=== PATIENT | female | born 1950 | race Hispanic/Latino ===

== ENCOUNTER 2018-06-10 22:03 | Emergency (ER) | payer MEDICARE ==
[2018-06-10 22:04] VITALS: BMI 18.8
[2018-06-10 22:34] VITALS: TEMP 97.9
--- NOTE | 2018-06-10 23:20 | ED PDOC ---
Arrival/HPI - General Chief Complaint: Chest Pain Time Seen by Provider: 06/10/18 22:42 Historian: Patient - History of Present Illness Narrative History of Present Illness (Text): 06/10/18 22:5:7 A 67 year old female, whose past medical history includes arthritis, presents to the emergency department complaining of chest pain for 2 weeks. Patient reports she 2 weeks ago when symptom began, she felt pain to be a mild "pressure -like sensation, with waves of pain". States she noticed it when she was walking up the stairs, however did not feel concerned about it, as she assumed it was due to her age. However, today, pain became more intense and radiated to her head, causing pressure. Patient notes last night, she woke up to a sensation as though she heard a loud noise in her ears, as patient described as "an explosion in her ears." She mentions never having these symptoms in the past. Patient discussed with her brother what she was experiencing and was recommended to go visit the ER for evaluation. Patient denies any other complaints at this time. PMD: Located in [place]. Time/Duration: > week (2 weeks) Symptom Onset: Gradual Symptom Course: Unchanged Past Medical History - Provider Review Nursing Documentation Reviewed: Yes - Musculoskeletal/Rheumatological Hx Osteoarthritis: Yes - Psychiatric Hx Substance Use: No - Surgical History Other/Comment: 2nd toe on right foot Family/Social History - Physician Review Nursing Documentation Reviewed: Yes Family/Social History: No Known Family HX Smoking Status: Never Smoked Hx Alcohol Use: Yes Hx Substance Use: No Allergies/Home Meds Allergies/Adverse Reactions: Allergies No Known Allergies Allergy (Verified 12/30/16 12:13) Home Medications: Home Meds Medication Instructions Recorded Confirmed No Known Home Med 12/30/16 12/30/16 Review of Systems - Physician Review All systems were reviewed & negative as marked: Yes - Review of Systems Constitutional: absent: Fevers, Night Sweats Respiratory: absent: SOB, Cough Cardiovascular: Chest Pain Gastrointestinal: absent: Abdominal Pain, Diarrhea, Nausea, Vomiting Neurological: Headache (patient states today chest pain radiating to head, causing pressure-like headache.). absent: Dizziness Physical Exam Vital Signs Reviewed: Yes Vital Signs Temp Pulse Resp BP Pulse Ox 06/11/18 05:35 56 L 18 144/73 98 06/10/18 22:29 97.9 F 76 16 121/73 99 Temperature: Afebrile Blood Pressure: Normal Pulse: Regular Respiratory Rate: Normal Appearance: Positive for: Well-Appearing, Non-Toxic, Comfortable Pain Distress: None Mental Status: Positive for: Alert and Oriented X 3 - Systems Exam Head: Present: Atraumatic, Normocephalic Pupils: Present: PERRL Extroacular Muscles: Present: EOMI Conjunctiva: Present: Normal Mouth: Present: Moist Mucous Membranes Neck: Present: Normal Range of Motion Respiratory/Chest: Present: Clear to Auscultation, Good Air Exchange. No: Respiratory Distress, Accessory Muscle Use Cardiovascular: Present: Regular Rate and Rhythm, Normal S1, S2. No: Murmurs Abdomen: No: Tenderness, Distention, Peritoneal Signs Back: Present: Normal Inspection Upper Extremity: Present: Normal Inspection. No: Cyanosis, Edema Lower Extremity: Present: Normal Inspection. No: Edema Neurological: Present: GCS=15, CN II-XII Intact, Speech Normal Skin: Present: Warm, Dry, Normal Color. No: Rashes Psychiatric: Present: Alert, Oriented x 3, Normal Insight, Normal Concentration Medical Decision Making ED Course and Treatment: 06/10/18 23:01 Impression: 67 year old female with chest pain and pressure-like headache. No acute findings on physical examination. Plan: -- EKG -- Angio Disection Protocol CT -- Chest X-ray -- Labs -- Urinalysis -- Reassess and disposition Progress Notes: EKG: Ordered, reviewed, and independently interpreted the EKG. Rate : 74 BPM Rhythm : NSR Interpretation : No ST-segment elevations or depressions, no T-wave inversions, normal intervals. Comparison : No previous EKG for comparison. 06/11/2018 02:[address]/ Abd/Pelvis CT IMPRESSION: 1. 6mm hypodense lesion in the pancreatic body head. Seen on image 149 series 6. 3 month followup exam is advised. 2. pericardial effusion, and maximal thickness measuring 9 mm. Dictator: aKren Tavares MD 06/11/2018 02:[address] IMPRESSION: 1. Peripheral effusion noted measuring 9 mm in thickness. 2. 1 cm indeterminate left kidney lesion. 3. There is wall thickening noted involving the small bowel. This may represent enteritis. Dictator: Karen Tavares MD 06/11/2018 05:[address] IMPRESSION: 1. No evidence of acute intracranial hemorrhage, extraxial fluid or midline shift. 2. No evidence of acute large vessel infarction. Dictator: Donavon Rodriguez MD - Lab Interpretations Lab Results: 06/10/18 23:50 06/10/18 23:50 Lab Results 06/11/18 00:10: Urine Color Yellow, Urine Appearance Clear, Urine pH 6.5, Ur Specific [place] 1.015, Urine Protein Negative, Urine Glucose (UA) Negative, Urine Ketones Negative, Urine Blood Negative, Urine Nitrate Negative, Urine Bilirubin Negative, Urine Urobilinogen 0.2, Ur Leukocyte Esterase Negative 06/10/18 23:50: Sodium 142, Potassium 4.3, Chloride 103, Carbon Dioxide 28, Anion Gap 14, BUN 15, Creatinine 0.9, Est GFR ( Amer) > 60, Est GFR (Non- Af Amer) > 60, Random Glucose 90, Calcium 9.7, Magnesium 2.2, Total Bilirubin 0.3, AST 29, ALT 23, Alkaline Phosphatase 48, Lactate Dehydrogenase 560, Total Creatine Kinase 91, Troponin I < 0.01, Total Protein 7.0, Albumin 4.4, Globulin 2.7, Albumin/Globulin Ratio 1.7 06/10/18 23:50: WBC 4.5, RBC 4.48, Hgb 13.6, Hct 39.3, MCV 87.7, MCH 30.4, MCHC 34.6, RDW 12.4, Plt Count 155, MPV 9.6, Gran % 57.1, Lymph % (Auto) 33.3, Shannon % (Auto) 5.9, Eos % (Auto) 3.3, Baso % (Auto) 0.4, Gran # 2.59, Lymph # (Auto) 1.5, Shannon # (Auto) 0.3, Eos # (Auto) 0.2, Baso # (Auto) 0.02 - RAD Interpretation Radiology Orders: 06/10/18 23:01 ANGIOGRAPHY DISECTION PROTOCOL [CT] Stat CHEST PORTABLE [RAD] Stat 06/11/18 03:10 HEAD W/O CONTRAST [CT] Stat - Scribe Statement The provider has reviewed the documentation as recorded by the Sanju Huffman Provider Scribe Attestation: All medical record entries made by the Scribfabián were at my direction and personally dictated by me. I have reviewed the chart and agree that the record accurately reflects my personal performance of the history, physical exam, medical decision making, and the department course for this patient. I have also personally directed, reviewed, and agree with the discharge instructions and disposition. Disposition/Present on Arrival - Present on Arrival Any Indicators Present on Arrival: No History of DVT/PE: No History of Uncontrolled Diabetes: No Urinary Catheter: No History of Decub. Ulcer: No History Surgical Site Infection Following: None - Disposition Have Diagnosis and Disposition been Completed?: Yes Diagnosis: Chest pain Disposition: HOME/ ROUTINE Disposition Time: 02:50 Condition: GOOD Discharge Instructions (ExitCare): Chest Pain (ED) Additional Instructions: ALEXIS TAVERAS, thank you for letting us take care of you today. Your provider was Lito Hernandes DO and you were treated for CHEST PAIN. The emergency medical care you received today was directed at your acute symptoms. If you were prescribed any medication, please fill it and take as directed. It may take several days for your symptoms to resolve. Return to the Emergency Department if your symptoms worsen, do not improve, or if you have any other problems. Please contact your doctor or call one of the physicians/clinics you have been referred to that are listed on the Patient Visit Information form that is included in your discharge packet. Bring any paperwork you were given at discharge with you along with any medications you are taking to your follow up visit. Our treatment cannot replace ongoing medical care by a primary care provider outside of the emergency department. Thank you for allowing the [facility] team to be part of your care today. Follow up with your fur tanner in 2-3 days for re-evaluation and further management. Referrals: [facility] Reannabel, [Family Provider] - Follow up with primary Forms: DIIME (Tai[place]ese)
[2018-06-11 00:23] LABS: BASO # 0.02 K/mm3 (0.0-2.0); BASO % 0.4 % (0.0-3.0); EOS # 0.2 (0.0-0.7); EOS % 3.3 % (1.5-5.0); GRAN # 2.59 (1.4-6.5); GRAN % 57.1 % (50.0-68.0); HEMOGLOBIN 13.6 g/dL (12.0-16.0); LYMPH # 1.5 (1.2-3.4); LYMPH % 33.3 % (22.0-35.0); MEAN CELL VOLUME 87.7 fl (80.0-105.0); MEAN CORPUSCULAR HEMOGLOBIN 30.4 pg (25.0-35.0); MEAN CORPUSCULAR HGB CONC 34.6 g/dl (31.0-37.0); MEAN PLATELET VOLUME 9.6 fl (7.0-11.0); MONO # 0.3 (0.1-0.6); MONO % 5.9 % (1.0-6.0); RBC 4.48 10^6/uL (3.5-6.1); RED CELL DISTRIBUTION WIDTH 12.4 % (11.5-14.5); WHITE BLOOD COUNT 4.5 10^3/ul (4.5-11.0)
[2018-06-11 00:27] LABS: PH,URINE 6.5 (4.7-8.0); URINE BILIRUBIN NEGATIVE (NEGATIVE); URINE BLOOD NEGATIVE (NEGATIVE); URINE GLUCOSE (UA) NEGATIVE (NEGATIVE); URINE LEUKOCYTE ESTERASE NEGATIVE Leu/uL (NEGATIVE); URINE PROTEIN NEGATIVE mg/dL (<30 mg/dL); URINE UROBILINOGEN 0.2 E.U./dL (<1 E.U./dL)
[2018-06-11 00:28] LABS: URINE APPEARANCE CLEAR (CLEAR); URINE COLOR YELLOW (YELLOW)
[2018-06-11 00:29] LABS: ALB/GLOB RATIO 1.7 (1.1-1.8); ALBUMIN 4.4 g/dL (3.0-4.8); ALT/SGPT 23 U/L (7-56); AST/SGOT 29 U/L (14-36); BLOOD UREA NITROGEN 15 mg/dL (7-21); CALCIUM 9.7 mg/dL (8.4-10.5); GFR AFRICAN-AMERICAN > 60; GFR NON-AFRICAN AMERICAN > 60
[2018-06-11 00:39] LABS: TROPONIN I < 0.01 ng/mL
[2018-06-11 06:28] VITALS: BP 144/73; PULSE 56; RESP 18; O2SAT 98
--- NOTE | 2018-06-11 08:07 | CT ---
Date of service: 06/11/2018 PROCEDURE: CT HEAD WITHOUT CONTRAST. HISTORY: r/o ICH COMPARISON: 12/30/2016 TECHNIQUE: Axial computed tomography images were obtained through the head/brain without intravenous contrast. There is some contrast enhancement related to the enhanced study of the chest performed several hours earlier. Radiation dose: Total exam DLP = 692 mGy-cm. This CT exam was performed using one or more of the following dose reduction techniques: Automated exposure control, adjustment of the mA and/or kV according to patient size, and/or use of iterative reconstruction technique. FINDINGS: HEMORRHAGE: No intracranial hemorrhage. BRAIN: No mass effect or edema. No atrophy or chronic microvascular ischemic changes. VENTRICLES: Unremarkable. No hydrocephalus. CALVARIUM: Unremarkable. PARANASAL SINUSES: Unremarkable as visualized. No significant inflammatory changes. MASTOID AIR CELLS: Unremarkable as visualized. No inflammatory changes. OTHER FINDINGS: The report concurs with the preliminary [facility] report IMPRESSION: No acute intracranial findings
--- NOTE | 2018-06-11 09:19 | CT ---
PROCEDURE: CT Angiography Chest, Abdomen and Pelvis with and without intravenous contrast HISTORY: chest pain - r/o dissection COMPARISON: None. TECHNIQUE: Contiguous axial images of the chest, abdomen and pelvis were obtained in the phase of aortic enhancement. A noncontrast enhanced CT of the chest was also obtained to evaluate for possible intramural thrombus. Coronal and sagittal reformats were generated. IV dose administered: 146 cc of Omni 350 Radiation dose: Total exam DLP = 471 mGy-cm. This CT exam was performed using one or more of the following dose reduction techniques: Automated exposure control, adjustment of the mA and/or kV according to patient size, and/or use of iterative reconstruction technique. FINDINGS: CT ANGIOGRAPHY OF THE CHEST WITH & WITHOUT CONTRAST: AORTA (CHEST AND ABDOMEN): The thoracic and abdominal aorta are unremarkable, without aneurysm, dissection or rupture. No intramural thrombus identified in the thoracic aorta on the non-contrast ct of the chest. The celiac axis, superior mesenteric artery, inferior mesenteric artery and the renal arteries are widely patent. The pelvic arteries are unremarkable. LUNGS: Clear. No nodule, mass or consolidation. MEDIASTINUM: Unremarkable. Normal caliber aorta and pulmonary arterial trunk. No aortic dissection. Normal size heart. LYMPH NODES: Unremarkable. PLEURA: Unremarkable. No pneumothorax. No pleural fluid. Small pericardial effusion BONES: Unremarkable. OTHER FINDINGS: None. CT ANGIOGRAPHY OF THE ABDOMEN AND PELVIS WITH CONTRAST: LIVER: Unremarkable. No gross lesion or ductal dilatation. GALLBLADDER AND BILE DUCTS: Unremarkable. PANCREAS: 6 mm cyst in the uncinate process of the pancreas. SPLEEN: Unremarkable. ADRENALS: Unremarkable. No mass. KIDNEYS AND URETERS: Unremarkable. No hydronephrosis. No solid mass. VASCULATURE: Unremarkable. No aortic aneurysm. STOMACH AND BOWEL: Unremarkable. No obstruction. No gross mural thickening. APPENDIX: Normal appendix. PERITONEUM: Unremarkable. No free fluid. No free air. LYMPH NODES: Unremarkable. No enlarged lymph nodes. BLADDER: Unremarkable. REPRODUCTIVE: Unremarkable. BONES: No acute fracture. OTHER FINDINGS: The report concurs with the preliminary [facility] report IMPRESSION: No evidence of aortic dissection or aneurysm
--- NOTE | 2018-06-11 11:12 | RAD ---
Date of service: 06/10/2018 HISTORY: r/o infiltrate COMPARISON: 12/30/2016 FINDINGS: LUNGS: No active pulmonary disease. PLEURA: No significant pleural effusion identified, no pneumothorax apparent. CARDIOVASCULAR: Normal. OSSEOUS STRUCTURES: No significant abnormalities. VISUALIZED UPPER ABDOMEN: Normal. OTHER FINDINGS: None. IMPRESSION: No active disease.
--- NOTE | 2018-06-11 16:27 | CARD ---
APPROVED REPORT Date of service: 06/10/2018 EKG Measurement Heart [id number] <Conclusion> Poor data quality, interpretation may be adversely affected Sinus rhythm with premature supraventricular complexes ST abnormality, nonspecific Abnormal ECG
== END 2018-06-11 06:28 | disposition home or self-care (01) ==
LOC: ED 22:03
DX: R07.9 Chest pain, unspecified (principal)
CPT/HCPCS: 70450; 71045; 71275; 74175; 80053; 81003; 82550; 83615; 83735; 84484; 85025; 93005; 99283; Q9967

== ENCOUNTER 2018-11-15 11:19 | Day surgery (SDC) | payer MEDICARE ==
[2018-11-15] MEDS ORDERED: Propofol 10 mg/ml Inj (20 ML) ONE (13:28)
[2018-11-15] MEDS ORDERED: Sodium Chloride 0.9% 1,000 ML IV SCH (13:45)
[2018-11-15 15:52] VITALS: BP 121/73; RESP 16; TEMP 97.8
[2018-11-15 15:53] VITALS: PULSE 68; O2SAT 98
== END 2018-11-15 15:47 | disposition home or self-care (01) ==
LOC: ENDO 11:19
PROVIDERS: ATTEND Internal Medicine Gastroenterology
DX: Z12.11 Encounter for screening for malignant neoplasm of colon (principal); R10.13 Epigastric pain; K29.50 Unspecified chronic gastritis without bleeding; K64.8 Other hemorrhoids; K64.4 Residual hemorrhoidal skin tags; Q43.8 Other specified congenital malformations of intestine; E78.5 Hyperlipidemia, unspecified; K21.0 Gastro-esophageal reflux disease with esophagitis; R07.89 Other chest pain
CPT/HCPCS: 43239; 45378; 88305; 88312; 88342; J2001; J2704; J7030; J7040

== ENCOUNTER 2018-12-30 08:52 | Outpatient (CLI) | payer MEDICARE | END 2018-12-30 08:53 | disposition home or self-care (01) | LOC: RAD 08:52 ==